=== PATIENT | female | born 1945 | race Hispanic/Latino ===

== ENCOUNTER 2018-06-09 11:44 | Outpatient (CLI) | payer MEDICARE | END 2018-06-09 11:45 | disposition home or self-care (01) | LOC: C.DEXAIC 11:44 | DX: M81.0 Age-related osteoporosis without current pathological fracture (principal); I10 Essential (primary) hypertension ==

== ENCOUNTER 2018-09-08 09:16 | Outpatient (CLI) | payer MEDICARE | END 2018-09-08 09:17 | disposition home or self-care (01) | LOC: C.VASC 09:16 ==